=== PATIENT | female | born 1955 | race Caucasian/White ===

== ENCOUNTER 2020-10-29 08:49 | Outpatient (REF) | payer MEDICARE, SELFPAY ==
--- NOTE | ~2020-10-29 | MM_ITS ---
EXAMINATION: MM SCREENING DIGITAL BREAST TOMOSYNTHESIS, BILATERAL CLINICAL INFORMATION: Screening. Asymptomatic. The lifetime risk of breast cancer based on the Tyrer-Cuzick Model is 10%. COMPARISON: Mammography: 07/29/2018, 01/29/2017 TECHNIQUE: Digital breast tomosynthesis is performed in both the craniocaudal and mediolateral oblique views along with computer-aided detection (CAD). Synthesized 2D images are generated from the tomosynthesis. FINDINGS: There are scattered areas of fibroglandular density (ACR BI-RADS breast composition Category b). There are no significant masses, abnormal calcifications, or other abnormalities. Parenchymal pattern is similar to prior studies. No significant changes. MM/MM tomosynthesis screening BI IMPRESSION: No mammographic evidence of malignancy. ASSESSMENT: BI-RADS 1: Negative RECOMMENDATION: Routine annual mammography screening. This patient's information was entered into a reminder system with a target due date for their next mammogram.
--- NOTE | ~2020-10-29 | MM_ITS ---
EXAMINATION: BONE DENSITOMETRY CLINICAL INDICATION: Screening for osteoporosis. COMPARISON: Previous BD dated 03/18/2012 and baseline BD dated 10/10/2009. TECHNIQUE: Using a [employer] DXA System (software version: 13.1) manufactured by [employer], dual-energy x-ray absorptiometry was performed of the lumbar spine and left hip. The images are of good technical quality. Summary results are attached. FINDINGS: AP SPINE L2-L3 (excluding L1 and L4): The data of L1-L4 has been changed to exclude the L1 and L4 vertebral bodies, because probable degenerative changes at these levels may cause overestimation of lumbar spine density. Current: BMD 1.235 g/cm2, Z-score 0.7, T-score 0.3, normal, 3.4% increase from previous, 2.7% increase from baseline (<5% change is not significant). Prior: BMD 1.194 g/cm2. Baseline: BMD 1.203 g/cm2. LEFT FEMUR, NECK: Current: BMD 0.898 g/cm2, Z-score -0.3, T-score -1.0, normal. Prior: BMD 0.878 g/cm2. Baseline: BMD 0.958 g/cm2. LEFT FEMUR, TOTAL: Current: BMD 1.094 g/cm2, Z-score 1.1, T-score 0.7, normal, 14.1% increase from previous, 8.0% increase from baseline (<5% change is not significant). Prior: BMD 0.959 g/cm2. Baseline: BMD 1.013 g/cm2. IDENTIFIED RISK FACTORS: Early menopause, secondary osteoporosis, history of fracture (adult), hysterectomy. HISTORY OF FRACTURE: Extremities. No insufficiency fracture reported. MEDICATIONS: Calcium supplements or multivitamin, vitamin D. MM/XR DEXA axial skeleton IMPRESSION: 1. DIAGNOSIS: Normal bone density based on the lowest T-score value of -1.0 in the femoral neck applying World Health Organization criteria. 2. 10-YEAR FRACTURE RISK PREDICTION, FRAX: Major osteoporotic fracture (clinical spine, forearm, hip or shoulder) 11.9%. Hip fracture 0.8%. 3. Treatment Recommendations: NOF guidelines recommend consideration for treatment in postmenopausal women and men age 50 and older presenting with the following: -A hip or vertebral (clinical or morphometric) fracture. -T-score less than or equal to -2.5 at the femoral neck or spine after appropriate evaluation to exclude secondary causes. -Low bone mass at the hip or spine and a 10-year fracture probability by FRAX of greater than or equal to 3% for hip fracture or greater than or equal to 20% for major osteoporotic fracture based on the [place] adapted WHO algorithm. 4. Other Recommendations: All treatment decisions require clinical judgment and consideration of individual patient factors, including patient preferences, comorbidities, previous drug use, risk factors not captured in the FRAX model (e.g. frailty, falls, vitamin D deficiency, increased bone turnover, interval significant decline in bone density) and possible under or overestimation of fracture risk by FRAX. FUTURE SCAN RECOMMENDATION: People with diagnosed cases of osteoporosis or at high risk for fracture should have regular bone mineral density tests. For patients eligible for Medicare, routine testing is allowed once every 2 years. The testing frequency can be increased to one year for patients who have rapidly progressing disease, those who are receiving or discontinuing medical therapy to restore bone mass, or have additional risk factors.
== END 2020-10-29 08:50 | disposition home or self-care (01) ==
LOC: HO.MAMMO 08:49
PROVIDERS: PCP Internal Medicine; Visit Provider Internal Medicine
DX: Z13.820 Encounter for screening for osteoporosis (principal); Z78.0 Asymptomatic menopausal state; Z79.899 Other long term (current) drug therapy; Z90.710 Acquired absence of both cervix and uterus; Z12.31 Encounter for screening mammogram for malignant neoplasm of breast
CPT/HCPCS: 77063; 77067; 77080

== ENCOUNTER 2020-10-29 08:58 | Outpatient (REF) | payer MEDICARE, SELFPAY | END 2020-10-29 08:59 | disposition home or self-care (01) | LOC: HO.MAMMO 08:58 | PROVIDERS: Visit Provider Internal Medicine | DX: Z13.89 Encounter for screening for other disorder (principal) ==

== ENCOUNTER 2021-11-11 08:23 | Outpatient (REF) | payer MEDICARE, SELFPAY ==
--- NOTE | ~2021-11-11 | MM_ITS ---
EXAMINATION: MM SCREENING DIGITAL BREAST TOMOSYNTHESIS, BILATERAL CLINICAL INFORMATION: Screening. Asymptomatic. The lifetime risk of breast cancer based on the Tyrer-Cuzick Model is 5%. COMPARISON: Mammography: 10/29/2020, 07/29/2018, 01/29/2017 TECHNIQUE: Digital breast tomosynthesis is performed in both the craniocaudal and mediolateral oblique views along with computer-aided detection (CAD). Synthesized 2D images are generated from the tomosynthesis. FINDINGS: There are scattered areas of fibroglandular density (ACR BI-RADS breast composition Category b). There are no significant masses, abnormal calcifications, or other abnormalities. Parenchymal pattern is similar to prior studies. There is no developing density or architectural abnormality. Incidental small stable intramammary node again seen mid upper outer left breast. Low axillary tail nodes are stable. There is a dermal lesion overlying the anterior upper left breast. No significant changes. MM/MM tomosynthesis screening BI IMPRESSION: No mammographic evidence of malignancy. ASSESSMENT: BI-RADS 2: Benign RECOMMENDATION: Routine annual mammography screening. This patient's information was entered into a reminder system with a target due date for their next mammogram.
== END 2021-11-11 08:24 | disposition home or self-care (01) ==
LOC: HO.MAMMO 08:23
PROVIDERS: PCP Internal Medicine; Visit Provider Internal Medicine
DX: Z12.31 Encounter for screening mammogram for malignant neoplasm of breast (principal)
CPT/HCPCS: 77063; 77067

== ENCOUNTER 2022-03-12 12:16 | Outpatient (REF) | payer MEDICARE, SELFPAY ==
--- NOTE | ~2022-03-12 | XR_ITS ---
EXAMINATION: XR ANKLE, RIGHT CLINICAL INFORMATION: Right ankle pain COMPARISON: Radiographs right foot 04/05/2018 TECHNIQUE: AP, lateral, and mortise views of the right ankle. FINDINGS: The malleoli are intact and the ankle mortise is symmetric. There is no ankle joint narrowing or erosive change. No visible ankle capsular effusion. The subtalar joint is unremarkable. The retrocalcaneal recess is preserved. No calcaneal spurring. XR/XR ankle RT 2V IMPRESSION: Unremarkable right ankle.
--- NOTE | ~2022-03-12 | XR_ITS ---
EXAMINATION: XR CHEST CLINICAL INFORMATION: Cough. COMPARISON: 06/07/2015 TECHNIQUE: 2 views of the chest were obtained. FINDINGS: There is again noted to be blunting of the left costophrenic angle and posterior sulcus related to pleural scarring. No definite acute parenchymal disease identified. No pneumothorax or pleural effusion. Heart normal size. No evidence of pulmonary edema. Old left rib fractures evident. There is a 1.5 cm density seen overlying the region of the right hemidiaphragm on PA film and may represent a lung nodule. I do not see this on lateral view. XR/XR chest 2V IMPRESSION: Chronic pleural parenchymal disease left lung base. 1.5 cm circumscribed density seen overlying the right upper abdomen and may represent a lung nodule. CT of chest would be of help in further evaluation of this finding. This does not appear to represent nipple shadow.
== END 2022-03-12 12:17 | disposition home or self-care (01) ==
LOC: HO.XRAY 12:16
PROVIDERS: PCP Internal Medicine; Visit Provider Internal Medicine
DX: R05.9 Cough, unspecified (principal); M25.571 Pain in right ankle and joints of right foot; R09.89 Other specified symptoms and signs involving the circulatory and respiratory systems
CPT/HCPCS: 71046; 73600

== ENCOUNTER 2022-04-09 07:08 | Outpatient (REF) | payer MEDICARE, SELFPAY ==
--- NOTE | ~2022-04-09 | CT_ITS ---
EXAMINATION: CT CHEST WITHOUT CONTRAST CLINICAL INFORMATION: Right lower lobe nodule. Abnormal chest. COMPARISON: Chest x-ray 03/12/2022, CT chest 06/07/2015. TECHNIQUE: Multidetector volumetric CT imaging of the chest was done. Axial MIP volume rendering provided. Sagittal and coronal reformatted images were obtained. This CT examination was performed using dose optimization techniques as appropriate, variously including the following: *Automated exposure control *Adjustment of mA and/or kV according to patient size (this includes techniques or standardized protocols for targeted exams where dose is matched to indication/reason for exam; i.e. extremities or head) *Use of iterative reconstruction technique DLP: 248 mGy-cm FINDINGS: TIRE CORD WEAVER: Unremarkable chest. LUNGS: The lungs are hyperinflated without acute pneumonic process. There is mild thickening of left superior major fissure axial image 278/7. There are atelectatic changes in the lingula on the lateral basal segment left lower lobe and right lung base.. There is a noncalcified 6 mL nodule right middle lobe axial image 380/7, pulmonary nodule right lower lobe adjacent to the right hemidiaphragm image 469/7 and right lower lobe pulmonary nodule at the right CP angle on axial image 520/7. No additional nodules are visualized. MEDIASTINUM: The thyroid lobes are symmetric and normal. The central trachea and the bronchi are widely patent. Accessory right apical bronchus of the trachea as described before. Heart size and the great vessels are normal caliber. No abnormal size mediastinal or hilar lymph nodes seen. No pericardial effusion seen. PLEURA: There is no pleural effusion. No pleural mass or thickening. AXILLA: No lymphadenopathy. UPPER ABDOMEN: Visualized liver, spleen, pancreas and bilateral adrenal glands are unremarkable. OSSEOUS STRUCTURES: No aggressive lytic or sclerotic process seen. Mild degenerative disc changes with spondylosis seen throughout mid and lower dorsal spine. CT/CT chest wo con IMPRESSION: Stable noncalcified pulmonary nodules. No new nodules seen. Fleischner guidelines were followed.
[2022-04-09 07:51] LABS: MANUAL DIFF FLAG NO
[2022-04-09 07:59] LABS: Basophils Percent Auto 0.2 % (0-2); Eosinophils Absolute Auto 0.2 X10*3/uL (0.0-0.4); Eosinophils Percent Auto 4.4 % (0-4); Hematocrit 42.4 % (37.0-47.0); Hemoglobin 13.9 g/dl (12.0-16.0); Imm Gran Abs Auto 0.01 X10*3/uL (0.00-0.03); Imm Gran Pct Auto 0.2 % (0.0-0.4); Lymphocytes Absolute Auto 1.7 X10*3/uL (1.2-4.9); Lymphocytes Percent Auto 37.5 % (20-40); Mean Corpuscular HGB Conc 32.8 g/dl (31.0-35.0); Mean Corpuscular Hemoglobin 29.9 pg (27.0-33.0); Mean Corpuscular Volume 91.2 fL (80.0-98.0); Mean Platelet Volume 10.2 fL (9.4-12.3); Monocytes Absolute Auto 0.4 X10*3/uL (0.1-1.2); Neutrophils Absolute Auto 2.2 x10*3/uL (2.0-8.3); Neutrophils Percent Auto 48.7 % (45-73); Platelet Count 213 X10*3/uL (160-400); Red Blood Count 4.65 X10*6/uL (4.20-5.50); Red Cell Distribution Width 14.6 % (11.0-16.0); White Blood Count 4.6 X10*3/uL (4.8-10.8)
[2022-04-09 08:32] LABS: Alanine Aminotransferase 29 U/L (0-31); Albumin Level 4.3 g/dL (3.5-5.0); Alkaline Phosphatase 58 U/L (39-117); Anion Gap 11 (12-20); Aspartate Amino Transferase 33 U/L (5-31); Bilirubin Total 0.7 mg/dL (0.0-1.0); Blood Urea Nitrogen 16 mg/dL (9-16); Calcium 9.2 mg/dL (8.4-10.2); Carbon Dioxide 28 mmol/L (22-29); Chloride 104 mmol/L (96-108); Cholesterol 204 mg/dL; Estimated Glomerular Filt Rate > 60; Glucose Fasting 98 mg/dL (60-99); HDL Cholesterol 84 mg/dL; LDL Cholesterol Calculated 104 mg/dl; Sodium 139 mmol/L (135-145); Total Protein 6.9 g/dL (6.5-8.0); Triglycerides 84 mg/dL
[2022-04-09 08:52] LABS: Free T4 (Free Thyroxine) 1.15 ng/dL (0.71-1.85)
== END 2022-04-09 07:09 | disposition home or self-care (01) ==
LOC: HO.CT 07:08
PROVIDERS: PCP Internal Medicine; Visit Provider Internal Medicine
DX: I10 Essential (primary) hypertension (principal); E03.9 Hypothyroidism, unspecified; E78.00 Pure hypercholesterolemia, unspecified; R91.1 Solitary pulmonary nodule; R94.39 Abnormal result of other cardiovascular function study
CPT/HCPCS: 36415; 71250; 80053; 80061; 84439; 84443; 85025

== ENCOUNTER 2022-07-10 12:03 | Outpatient (REF) | payer MEDICARE, SELFPAY ==
--- NOTE | ~2022-07-10 | XR_ITS ---
EXAMINATION: XR KNEE, RIGHT CLINICAL INFORMATION: Right knee pain COMPARISON: None TECHNIQUE: Four views of the right knee. FINDINGS: The bones are intact. No fracture. Large joint effusion. Alignment is anatomic. There is narrowing of the moderate to marked narrowing patellofemoral cartilage space with lateral patellar tilt. On the lateral view, there is increased calcific density adjacent to the posterior tibial plateau which raises concern regarding a loose body within the joint. XR/XR knee RT 4V IMPRESSION: 1. Large joint effusion. 2. Moderate to marked narrowing of the patellofemoral cartilage space with lateral patellar tilt. 3. Question of loose body within the knee joint.
== END 2022-07-10 12:04 | disposition home or self-care (01) ==
LOC: HO.XRAY 12:03
PROVIDERS: PCP Internal Medicine; Visit Provider Internal Medicine
DX: M25.561 Pain in right knee (principal)
CPT/HCPCS: 73564

== ENCOUNTER 2022-11-17 07:41 | Outpatient (REF) | payer MEDICARE, SELFPAY ==
--- NOTE | ~2022-11-17 | MM_ITS ---
EXAMINATION: MM SCREENING DIGITAL BREAST TOMOSYNTHESIS, BILATERAL CLINICAL INFORMATION: Screening. Asymptomatic. The lifetime risk of breast cancer based on the Tyrer-Cuzick Model is 9%. COMPARISON: Mammography: 11/11/2021, 10/29/2020, 07/29/2018 TECHNIQUE: Digital breast tomosynthesis is performed in both the craniocaudal and mediolateral oblique views along with computer-aided detection (CAD). Synthesized 2D images are generated from the tomosynthesis. FINDINGS: There are scattered areas of fibroglandular density (ACR BI-RADS breast composition Category b). There are no significant masses, abnormal calcifications, or other abnormalities. No architectural abnormality or developing density or significant change from prior studies. The axilla are unremarkable. Again, there is a small intramammary node mid upper outer left breast and a dermal lesion overlying the anterior upper left breast. MM/MM tomosynthesis screening BI IMPRESSION: No mammographic evidence of malignancy. ASSESSMENT: BI-RADS 2: Benign RECOMMENDATION: Routine annual mammography screening. This patient's information was entered into a reminder system with a target due date for their next mammogram.
== END 2022-11-17 07:42 | disposition home or self-care (01) ==
LOC: HO.MAMMO 07:41
PROVIDERS: PCP Internal Medicine; Visit Provider Internal Medicine
DX: Z12.31 Encounter for screening mammogram for malignant neoplasm of breast (principal)
CPT/HCPCS: 77063; 77067

== ENCOUNTER 2023-11-04 11:26 | Outpatient (REF) | payer MEDICARE, SELFPAY ==
[2023-11-04 13:08] LABS: MANUAL DIFF FLAG NO
[2023-11-04 13:19] LABS: Hematocrit 34.7 % (37.0-47.0); Imm Gran Pct Auto 0.2 % (0.0-0.4); Mean Corpuscular HGB Conc 28.8 g/dl (31.0-35.0); Mean Corpuscular Hemoglobin 21.8 pg (27.0-33.0); Mean Corpuscular Volume 75.8 fL (80.0-98.0); Mean Platelet Volume 10.6 fL (9.4-12.3); Platelet Count 356 X10*3/uL (160-400); Red Blood Count 4.58 X10*6/uL (4.20-5.50); Red Cell Distribution Width 17.4 % (11.0-16.0); White Blood Count 5.6 X10*3/uL (4.8-10.8)
[2023-11-04 13:20] LABS: Basophils Percent Auto 0.4 % (0-2); Eosinophils Absolute Auto 0.3 X10*3/uL (0.0-0.4); Eosinophils Percent Auto 5.7 % (0-4); Imm Gran Abs Auto 0.01 X10*3/uL (0.00-0.03); Lymphocytes Absolute Auto 1.5 X10*3/uL (1.2-4.9); Lymphocytes Percent Auto 26.2 % (20-40); Monocytes Absolute Auto 0.5 X10*3/uL (0.1-1.2); Monocytes Percent Auto 9.5 % (2-11); Neutrophils Absolute Auto 3.2 x10*3/uL (2.0-8.3)
[2023-11-04 13:37] LABS: Appearance Urine Clear; Color Urine Yellow; Glucose Urine UA Negative (Negative); Leukocyte Esterase Urine Small (1+) (Negative); Nitrite Urine Negative (Negative); PH 5.5 (5.0-9.0); UMIC TRIGGER UACC YES; Urine Blood Negative (Negative); Urine Ketones Negative (Negative); Urine Protein Negative (Neg-Trace)
[2023-11-04 13:50] LABS: Alanine Aminotransferase 16 U/L (0-31); Alkaline Phosphatase 102 U/L (39-117); Anion Gap 14 (12-20); Aspartate Amino Transferase 25 U/L (5-31); Bilirubin Total 0.4 mg/dL (0.0-1.0); Blood Urea Nitrogen 8 mg/dL (9-16); Calcium 9.7 mg/dL (8.4-10.2); Carbon Dioxide 29 mmol/L (22-29); Chloride 102 mmol/L (96-108); Cholesterol 173 mg/dL (<200); Estimated Glomerular Filt Rate > 60; Glucose Fasting 94 mg/dL (60-99); HDL Cholesterol 68 mg/dL (>40); LDL Cholesterol Calculated 83 mg/dL (<100); Sodium 141 mmol/L (135-145); Total Protein 7.6 g/dL (6.5-8.0); Triglycerides 110 mg/dL (<150)
[2023-11-04 13:58] LABS: Bacteria Urine None Seen (None Seen); Hyaline Casts Urine 0-2 /LPF (0-2); RBC Urine 0-2 /HPF (0-2); UACC Culture Trigger YES; WBC Urine 21-50 /HPF (0-5)
[2023-11-04 14:08] LABS: Free T4 (Free Thyroxine) 1.07 ng/dL (0.71-1.85); Thyroid Stimulating Hormone 2.49 uIU/mL (0.32-4.0)
== END 2023-11-04 11:27 | disposition home or self-care (01) ==
LOC: HO.10HDL 11:26
PROVIDERS: Visit Provider Internal Medicine
DX: I10 Essential (primary) hypertension (principal); E03.9 Hypothyroidism, unspecified; K21.9 Gastro-esophageal reflux disease without esophagitis; J44.9 Chronic obstructive pulmonary disease, unspecified; D64.9 Anemia, unspecified
CPT/HCPCS: 36415; 80053; 80061; 81001; 84439; 84443; 85025; 87086

== ENCOUNTER 2023-11-09 07:39 | Outpatient (REF) | payer MEDICARE, SELFPAY ==
[2023-11-09 10:34] LABS: Retic HGB Equivalent 22.1 pg (30.0-35.0); Reticulocyte Percent 2.2 % (0.5-1.8); Reticulocytes Absolute 0.105 X10*6/uL (0.026-0.095)
[2023-11-09 10:36] LABS: Urine Cytology See Pathology rpt
[2023-11-09 11:21] LABS: Iron 27 mcg/dL (30-160); Percent Iron Saturation 6 % (15-50); Total Iron Binding Capacity 420 mcg/dL (228-428); Unsaturated Iron Binding 393 ug/dL
[2023-11-10 14:40] LABS: Vitamin B12 435 pg/mL (200-900)
== END 2023-11-09 07:40 | disposition home or self-care (01) ==
LOC: HO.10HDL 07:39
PROVIDERS: Visit Provider Internal Medicine
DX: D64.9 Anemia, unspecified (principal); R30.0 Dysuria
CPT/HCPCS: 36415; 82607; 83540; 85045; 88112

== ENCOUNTER 2023-11-23 07:51 | Outpatient (REF) | payer MEDICARE, SELFPAY ==
--- NOTE | ~2023-11-23 | MM_ITS ---
EXAMINATION: MM SCREENING DIGITAL BREAST TOMOSYNTHESIS, BILATERAL CLINICAL INFORMATION: Screening. Asymptomatic. COMPARISON: Mammography: 11/17/2022, 10/29/2020, 07/29/2018, 01/29/2017 TECHNIQUE: Digital breast tomosynthesis is performed in both the craniocaudal and mediolateral oblique views along with computer-aided detection (CAD). Synthesized 2D images are generated from the tomosynthesis. FINDINGS: There are scattered areas of fibroglandular density (ACR BI-RADS breast composition Category b). Incidental small stable intramammary node again seen mid upper outer left breast. Low axillary tail nodes are stable. There are no suspicious masses, suspicious grouped calcifications, or areas of architectural distortion in either breast. The parenchymal pattern is stable from prior exams. MM/MM tomosynthesis screening BI IMPRESSION: No mammographic evidence of malignancy. ASSESSMENT: BI-RADS BI-RADS 2 - Benign Findings RECOMMENDATION: Routine annual mammography screening. 1 year F/U This examination should not preclude the clinical evaluation of a suspicious palpable abnormality. This patient's information was entered into a reminder system with a target due date for their next mammogram.
== END 2023-11-23 07:52 | disposition home or self-care (01) ==
LOC: HO.MAMMO 07:51
PROVIDERS: PCP Internal Medicine; Visit Provider Internal Medicine
DX: Z12.31 Encounter for screening mammogram for malignant neoplasm of breast (principal)
CPT/HCPCS: 77063; 77067

== ENCOUNTER → 2023-11-23 08:00 | Outpatient (BNV) | payer MEDICARE, SELFPAY | PROVIDERS: PCP Internal Medicine; Visit Provider Radiology Diagnostic Radiology | DX: Z12.31 Encounter for screening mammogram for malignant neoplasm of breast (principal) | CPT/HCPCS: 77063; 77067 ==

== ENCOUNTER 2023-12-09 14:25 | Outpatient (REF) | payer MEDICARE, SELFPAY ==
--- NOTE | ~2023-12-09 | XR_ITS ---
EXAMINATION: XR CHEST CLINICAL INFORMATION: Evaluate for pneumonia COMPARISON: 02/13/2022 TECHNIQUE: 2 views of the chest were obtained. FINDINGS: Heart, mediastinum and vascularity within normal limits. Chronic left costophrenic angle blunting again noted. Interval opacity right medial base. Bony structures are intact. XR/XR chest 2V IMPRESSION: Radiographic findings suspicious for right middle lobe pneumonia. Follow-up to complete resolution recommended.
== END 2023-12-09 14:26 | disposition home or self-care (01) ==
LOC: HO.XRAY 14:25
PROVIDERS: PCP Internal Medicine; Visit Provider Internal Medicine
DX: Z13.89 Encounter for screening for other disorder (principal)
CPT/HCPCS: 71046

== ENCOUNTER 2023-12-09 15:17 | Outpatient (REF) | payer MEDICARE, SELFPAY ==
[2023-12-09 16:43] LABS: Influenza A PCR NEGATIVE (Negative); Influenza B PCR NEGATIVE (Negative); Resp Syncy Virus RNA Qual PCR NEGATIVE (Negative); SARS COV2 PCR INHOUSE NEGATIVE (Negative)
== END 2023-12-09 15:18 | disposition home or self-care (01) ==
LOC: HO.LNP 15:17
PROVIDERS: Visit Provider Internal Medicine
DX: Z11.52 Encounter for screening for COVID-19 (principal); Z20.822 Contact with and (suspected) exposure to COVID-19; R05.9 Cough, unspecified; R06.2 Wheezing
CPT/HCPCS: 0241U; 71046

== ENCOUNTER 2023-12-29 07:30 | Outpatient (REF) | payer MEDICARE, SELFPAY | END 2023-12-29 07:31 | disposition home or self-care (01) | LOC: HO.CT 07:30 | PROVIDERS: PCP Internal Medicine; Visit Provider Internal Medicine | DX: Z13.89 Encounter for screening for other disorder (principal) ==

== ENCOUNTER 2024-01-18 13:09 | Outpatient (REF) | payer MEDICARE, SELFPAY ==
--- NOTE | ~2024-01-18 | CT_ITS ---
EXAMINATION: CT CHEST WITHOUT CONTRAST CLINICAL INFORMATION: Right middle lobe pneumonia. COMPARISON: Chest x-ray December 01, 2023. CT chest April 09, 2022. CT chest June 07, 2015. TECHNIQUE: Multidetector volumetric CT imaging of the chest was done. Axial MIP volume rendering provided. Sagittal and coronal reformatted images were obtained. This CT examination was performed using dose optimization techniques as appropriate, variously including the following: *Automated exposure control *Adjustment of mA and/or kV according to patient size (this includes techniques or standardized protocols for targeted exams where dose is matched to indication/reason for exam; i.e. extremities or head) *Use of iterative reconstruction technique DLP: 302 mGy-cm FINDINGS: LUNGS: No acute airspace disease. No bronchiectasis. No interstitial lung changes. Stable linear scarring at the lingula anterior left lower lobe at the costophrenic angle. Lung nodules: Right lun. Stable 3 x 5 mm nodule right middle lobe axial image 374/589 is 5. This is stable since CAT scan June 07, 2015. No further follow-up imaging recommended. No new lung nodules. MEDIASTINUM: The heart size is normal. No pericardial effusion. Aorta and great vessels are unremarkable. No mass or significant lymphadenopathy. CORONARY ARTERY CALCIFICATION: None visualized on this study. PLEURA: There is no pleural effusion. No pleural mass or thickening. AXILLA: No lymphadenopathy. UPPER ABDOMEN: Unremarkable. OSSEOUS STRUCTURES: Multilevel degenerative spondylosis spine. CT/CT chest wo IV con IMPRESSION: No acute abnormality of the chest. Fleischner guidelines were followed.
[2024-01-18 14:03] LABS: MANUAL DIFF FLAG NO
[2024-01-18 15:44] LABS: Basophils Percent Auto 0.3 % (0-2); Eosinophils Absolute Auto 0.3 X10*3/uL (0.0-0.4); Eosinophils Percent Auto 4.4 % (0-4); Hematocrit 39.9 % (37.0-47.0); Imm Gran Abs Auto 0.01 X10*3/uL (0.00-0.03); Imm Gran Pct Auto 0.2 % (0.0-0.4); Lymphocytes Absolute Auto 1.5 X10*3/uL (1.2-4.9); Lymphocytes Percent Auto 25.9 % (20-40); Mean Corpuscular HGB Conc 30.1 g/dl (31.0-35.0); Mean Corpuscular Hemoglobin 24.2 pg (27.0-33.0); Mean Corpuscular Volume 80.4 fL (80.0-98.0); Mean Platelet Volume 11.3 fL (9.4-12.3); Monocytes Absolute Auto 0.6 X10*3/uL (0.1-1.2); Monocytes Percent Auto 10.2 % (2-11); Neutrophils Absolute Auto 3.5 x10*3/uL (2.0-8.3); Platelet Count 309 X10*3/uL (160-400); Red Blood Count 4.96 X10*6/uL (4.20-5.50); Red Cell Distribution Width 22.1 % (11.0-16.0); White Blood Count 5.9 X10*3/uL (4.8-10.8)
[2024-01-18 16:38] LABS: Iron 37 mcg/dL (30-160); Percent Iron Saturation 9 % (15-50); Total Iron Binding Capacity 404 mcg/dL (228-428); Unsaturated Iron Binding 367 ug/dL
== END 2024-01-18 13:10 | disposition home or self-care (01) ==
LOC: HO.CT 13:09
PROVIDERS: PCP Internal Medicine; Visit Provider Internal Medicine
DX: J18.9 Pneumonia, unspecified organism (principal)
CPT/HCPCS: 36415; 71250; 83540; 85025

== ENCOUNTER 2025-01-30 09:54 | Outpatient (AMB) | payer MEDICARE, SELFPAY ==
--- NOTE | 2025-01-30 09:57 | A.OFFPC_ITS ---
Vital Signs 01/30/25 10:04 Height 5 ft 6 in Weight 123.377 kg BMI 43.9 BP 128/86 Respiration 18 Pulse 86 Pulse Source Pulse Oximeter Temp 96.8 F Temp Source Temporal Artery Scan Pulse Oximetry (%) 97 Oxygen Delivery Method Room Air Intake Visit Reasons: Trouble Breathing - see comments Drywall Boardhanger Required: No Accompanied by: Self / Same As Patient Allergies No Known Allergies Allergy (Verified 01/30/25 10:03) HPI HPI Comments History of Present Illness Details 69 year old female iwth htn, hypothyroid ism, hld, maria r who is morbidly obese with BMI >43.9 presents to the office for management of chronic conditions and to establish care. Reports chronic sinusitis which she feels is well managed at this time. She reports she has gained 100 pounds since her R TKA and now needs a L TKA. Reports she has been sedentary as a result but has been following a healthy diet. Despite this has not been able to lose weight though she does desire to do so. She is wondering if GLP 1 could be prescribed given the morbid obesity as well as her obstructive sleep apnea. She does not use his CPAP as she was unable to tolerate this. Follows with [facility]. She is aware of the pot ential effects of not using a CPAP. She does however state that she is not sleeping. She is compliant with all of her medications [facility] Medical History (Updated 01/30/25 @ 10:21 by BRUNA Urias) Former cigarette smoker Asthma Hyperlipidemia Hypothyroidism HTN (hypertension) Morbid obesity Obstructive sleep apnea Social History (Updated 01/30/25 @ 10:20 by BRUNA Urias) Patient Tobacco Use Status: Former Tobacco user Cigarette Packs Per Day: 1 Years Smoked: 20 years, quit 20 years ago Review of Systems Const All systems reviewed & are unremarkable except as noted in HPI and below Physical exam (Primary Care) Vital Signs: Last Vital Signs Temp 96.8 F 01/30/25 10:04 Pulse 86 01/30/25 10:04 Resp 18 01/30/25 10:04 BP 128/86 01/30/25 10:04 Pulse Ox 97 01/30/25 10:04 Oxygen Delivery Method Room Air 01/30/25 10:04 BMI result Body Mass Index 43.9 Tobacco/Smoking Status: Tobacco use Status Patient Tobacco Use Status Former Tobacco user 01/30/25 10:20 Const Other: Constitutional - Awake and Alert, No apparent distress Eyes - PERRLA, EOMI Cardiovascular - S1S2, RRR, No edema Respiratory - Normal lung expansion, Normal respiratory effort, No respiratory distress, CTA bilaterally Extremities - no calf tenderness bilaterally, no swelling Skin - Warm/Dry Neurological - Alert & oriented x3 Psychological - Appropriate affect Coding Level of Care Code New Pt Level 4 (99704) Complex EM visit Add On G2211 Diagnoses HTN (hypertension) I10 Hypothyroidism E03.9 Hyperlipidemia E78.5 Obstructive sleep apnea G47.33 Morbid obesity E66.01 Asthma J45.909 Assessment & Plan Assessment & Plan (1) HTN (hypertension): Code(s): I10 - Essential (primary) hypertension Category: Medical Plan: Controlled with blood pressure 128/86. She will continue losartan 50 mg daily. BMP ordered to evaluate renal function and electrolyte levels. (2) Hypothyroidism: Code(s): E03.9 - Hypothyroidism, unspecified Category: Medical Plan: TSH with reflex free T4 ordered. Continue levothyroxine as prescribed, dose to be adjusted pending results of study. (3) Hyperlipidemia: Code(s): E78.5 - Hyperlipidemia, unspecified Category: Medical Plan: Lipid panel ordered. Continue atorvastatin 20 mg daily, dose to be adjusted as appropriate pending results of study. Recommend diet low in saturated fat as well as highly processed oils. (4) Obstructive sleep apnea: Code(s): G47.33 - Obstructive sleep apnea (adult) (pediatric) Category: Medical Plan: Not currently using CPAP. Referred for sleep study. Counseled on the possible effects of CPAP noncompliance (5) Morbid obesity: Code(s): E66.01 - Morbid (severe) obesity due to excess calories Category: Medical Plan: Significant weight gain over the last 1.5 years. Limited access to exercise secondary to severe knee pain. She will follow-up with orthopedics for possible left TKA. Recommend healthy diet with increased protein, vegetables, fruits. Recommend lowering carbohydrate intake as well as saturated fats. Tirzepatide ordered (6) Asthma: Code(s): J45.909 - Unspecified asthma, uncomplicated Category: Medical Plan: Question if her chronic lung disease is actually COPD given the chronic cough and smoking history. She is referred for pulmonary function testing. Plan Follow up in 6 months, sooner if needed. Labs to be completes prior to visit. Referred for PFT and sleep study Orders: Orders RT home sleep study 01/30/25 E03.9 - Hypothyroidism, unspecified, E66.01 - Morbid (severe) obesity due to excess calories, E78.5 - Hyperlipidemia, unspecified, G47.33 - Obstructive sleep apnea (adult) (pediatric), I10 - Essential (primary) hypertension, Z13.1 - Encounter for screening for diabetes mellitus Basic Metabolic Panel 01/30/25 E03.9 - Hypothyroidism, unspecified, E66.01 - Morbid (severe) obesity due to excess calories, E78.5 - Hyperlipidemia, unspecified, G47.33 - Obstructive sleep apnea (adult) (pediatric), I10 - Essential (primary) hypertension, Z13.1 - Encounter for screening for diabetes mellitus Hemoglobin A1c 01/30/25 E03.9 - Hypothyroidism, unspecified, E66.01 - Morbid (severe) obesity due to excess calories, E78.5 - Hyperlipidemia, unspecified, G47.33 - Obstructive sleep apnea (adult) (pediatric), I10 - Essential (primary) hypertension, Z13.1 - Encounter for screening for diabetes mellitus Lipid Panel 01/30/25 E03.9 - Hypothyroidism, unspecified, E66.01 - Morbid (severe) obesity due to excess calories, E78.5 - Hyperlipidemia, unspecified, G47.33 - Obstructive sleep apnea (adult) (pediatric), I10 - Essential (primary) hypertension, Z13.1 - Encounter for screening for diabetes mellitus Liver Panel 01/30/25 E03.9 - Hypothyroidism, unspecified, E66.01 - Morbid (severe) obesity due to excess calories, E78.5 - Hyperlipidemia, unspecified, G47.33 - Obstructive sleep apnea (adult) (pediatric), I10 - Essential (primary) hypertension, Z13.1 - Encounter for screening for diabetes mellitus Complete Blood Count Auto Diff 01/30/25 E03.9 - Hypothyroidism, unspecified, E66.01 - Morbid (severe) obesity due to excess calories, E78.5 - Hyperlipidemia, unspecified, G47.33 - Obstructive sleep apnea (adult) (pediatric), I10 - Essential (primary) hypertension, Z13.1 - Encounter for screening for diabetes mellitus TSH reflex Free T4 01/30/25 E03.9 - Hypothyroidism, unspecified, E66.01 - Morbid (severe) obesity due to excess calories, E78.5 - Hyperlipidemia, unspecified, G47.33 - Obstructive sleep apnea (adult) (pediatric), I10 - Essential (primary) hypertension, Z13.1 - Encounter for screening for diabetes mellitus PFT pulmonary function test 01/30/25 J45.909 - Unspecified asthma, uncomplicated, R05.3 - Chronic cough, Z87.891 - Personal history of nicotine dependence Medications: New tirzepatide for 4 weeks 2.5 mg (0.5 mL) subcut QWEEK 2 mL 0RF E66.01 - Morbid (severe) obesity due to excess calories, G47.33 - Obstructive sleep apnea (adult) (pediatric) Discontinued amoxicillin Take 4 capsule(s) 1 hour before dental work Discontinued Reason: Patient Completed Course 2,000 mg (4 x 500 mg) PO ONCE 4 caps 0RF
[2025-01-30 10:04] VITALS: BP 128/86; PULSE 86; RESP 18; TEMP 36; O2SAT 97; BMI 43.9
--- OUTSIDE RECORDS SUMMARY | 2025-01-30 10:58 | XMS_ITS | Patient Health Record ---
Author Organization [facility] Address [address] [place] [address] Care Team Providers Care Lathe Turner Name Role Phone Brayden Yee MD Primary Care Provider Omid Rhoades Unavailable [phone] Allergies No Known Allergies Reason For Referral No Information Medications Medication SIG (Take, Route, Frequency, Duration) Notes Start Date End Date Status Atorvastatin Calcium 20 MG 1 tablet Oral ly Once a day for 30 day(s) Active Losartan Potassium 50 MG 1 tablet Orally Once a day for 30 day(s) Active Levothyroxine Sodium 150 MCG 1 tablet in the morning on an empty stomach Orally Once a day for 30 day(s) Active Social History Tobacco Use: Social History Observation Description Date Details (start date - stop date) Former Smoker NA - NA Tobacco Use/Smoking Question Answer Notes Are you a: former smoker Alcohol Screen Question Answer Notes Did you have a drink contain ing alcohol in the past year? Yes How often did you have a dri nk containing alcohol in the past year? Monthly or less (1 point) Points 1 Interpretation Negative Tobacco use other than smoking: Question Answer Notes Are you an other tobacco user? No Plan Of Treatment No Information Insurance Providers Payer Name Payer Address Payer Phone Subscriber Number Group Number Insured Name Patient Relationship to Insured Coverage Start Date Coverage End Date [employer] [address] [place] [address] [id number] Mirian Giang Self - patient is the insured Medical (General) History Medical History History ICD Code Anemia Anxiety asthma Broken bones Dementia Diverticulosis High blood pressure chronic sinusitis thyroid Measles Mumps Chicken pox Transfusions CAD Surgical History Surgery Date(Month/Year)
== END 2025-01-30 10:28 | disposition home or self-care (01) ==
LOC: HO.HMCHD 09:55
PROVIDERS: PCP Internal Medicine; Visit Provider Physician Assistant
DX: I10 Essential (primary) hypertension (principal); E03.9 Hypothyroidism, unspecified; E78.5 Hyperlipidemia, unspecified; G47.33 Obstructive sleep apnea (adult) (pediatric); E66.01 Morbid (severe) obesity due to excess calories; J45.909 Unspecified asthma, uncomplicated

== ENCOUNTER 2025-01-30 10:33 | Outpatient (REF) | payer MEDICARE, SELFPAY ==
[2025-01-30 14:04] LABS: MANUAL DIFF FLAG NO
[2025-01-30 14:16] LABS: Basophils Percent Auto 0.2 % (0-2); Eosinophils Absolute Auto 0.2 X10*3/uL (0.0-0.4); Eosinophils Percent Auto 2.8 % (0-4); Hematocrit 46.3 % (37.0-47.0); Hemoglobin 15.1 g/dl (12.0-16.0); Imm Gran Abs Auto 0.04 X10*3/uL (0.00-0.03); Imm Gran Pct Auto 0.7 % (0.0-0.4); Lymphocytes Absolute Auto 1.3 X10*3/uL (1.2-4.9); Lymphocytes Percent Auto 22.7 % (20-40); Mean Corpuscular HGB Conc 32.6 g/dl (31.0-35.0); Mean Corpuscular Hemoglobin 29.4 pg (27.0-33.0); Mean Corpuscular Volume 90.3 fL (80.0-98.0); Mean Platelet Volume 11.6 fL (9.4-12.3); Monocytes Absolute Auto 0.4 X10*3/uL (0.1-1.2); Monocytes Percent Auto 7.7 % (2-11); Neutrophils Absolute Auto 3.7 x10*3/uL (2.0-8.3); Neutrophils Percent Auto 65.9 % (45-73); Platelet Count 238 X10*3/uL (160-400); Red Blood Count 5.13 X10*6/uL (4.20-5.50); Red Cell Distribution Width 13.8 % (11.0-16.0); White Blood Count 5.7 X10*3/uL (4.8-10.8)
[2025-01-30 14:38] LABS: Estimated Average Glucose 117 mg/dL; Hemoglobin A1C 154.7038 umol/L; Hemoglobin A1c % 5.7 % (<6.0); Total Hemoglobin (HGBA1C) 3996.9225 umol/L
[2025-01-30 14:59] LABS: Alanine Aminotransferase 25 U/L (0-31); Albumin Level 4.3 g/dL (3.5-5.0); Alkaline Phosphatase 92 U/L (39-117); Anion Gap 10 (12-20); Aspartate Amino Transferase 26 U/L (5-31); Bilirubin Direct 0.2 mg/dL (0.0-0.5); Bilirubin Total 0.4 mg/dL (0.0-1.0); Blood Urea Nitrogen 12 mg/dL (9-16); Calcium 9.4 mg/dL (8.4-10.2); Carbon Dioxide 31 mmol/L (22-29); Chloride 101 mmol/L (96-108); Cholesterol 179 mg/dL (<200); Estimated Glomerular Filt Rate > 60; Glucose Random 104 mg/dL (60-115); HDL Cholesterol 59 mg/dL (>40); LDL Cholesterol Calculated 102 mg/dL (<100); Potassium 4.2 mmol/L (3.3-5.1); Sodium 138 mmol/L (135-145); TSH reflex Free T4 4.28 uIU/mL (0.32-4.0); Total Protein 7.5 g/dL (6.5-8.0); Triglycerides 90 mg/dL (<150)
[2025-01-30 16:27] LABS: Free T4 (Free Thyroxine) 1.17 ng/dL (0.71-1.85)
== END 2025-01-30 10:34 | disposition home or self-care (01) ==
LOC: HO.10HDL 10:33
PROVIDERS: Visit Provider Physician Assistant
DX: I10 Essential (primary) hypertension (principal); E03.9 Hypothyroidism, unspecified; E78.5 Hyperlipidemia, unspecified; G47.33 Obstructive sleep apnea (adult) (pediatric); E66.01 Morbid (severe) obesity due to excess calories; Z68.41 Body mass index [BMI] 40.0-44.9, adult; J45.909 Unspecified asthma, uncomplicated; Z79.899 Other long term (current) drug therapy; Z13.1 Encounter for screening for diabetes mellitus
CPT/HCPCS: 36415; 80048; 80061; 80076; 83036; 84439; 84443; 85025; 99202

== ENCOUNTER 2025-03-06 08:51 | Outpatient (AMB) | payer MEDICARE, SELFPAY ==
--- NOTE | 2025-03-06 08:53 | MHC.PC.OV ---
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 He was recently started on tirzepatide 2.5 mg weekly and reports feeling well on this. No adverse side effects. She states this has really curbed her appetite and helped her psychologically with cravings. In addition to using the medication, she has downloaded an application on her phone to track her calorie intake as well as macros. She is currently maintain a calorie deficit and is taking in 1270 calories per day with emphasis on protein, 130 g per day. She has lost 13 lb since initiating the medication thus far and is feeling very good about this and is motivated to continue with weight loss. She does still continue to use her CPAP and has upcoming repeat sleep study on April 05. Despite her weight loss efforts, she does continue to experience chronic pain. She has chronic pain in the left hip that occasionally radiates into the left thigh. She also has chronic pain of the knees bilaterally and is following with Orthopedics for cortisone injections. As a result, she is having difficulty at work due to prolonged standing. She is looking for accommodations and reduced work schedule as a result. In the meantime, she will continuing working with Orthopedic surgery as well as working on weight loss efforts which showed ultimately improve pain by decreasing the amount of stress on the joints. Labs were completed following last visit which showed minimally elevated LDL at 102 and stable thyroid function with free T4 1.17. Hemoglobin A1c was 5.7%. Renal function within normal limits, electrolyte levels within normal limits except for a slightly elevated CO2 of 31. Continues to report compliance with all medications. Blood pressure in the office today 120/74. Concerns: None other than those mentioned above ROS: General: No fevers, malaise, unintentional weight loss HEENT: No blurred vision, diplopia. No sore throat, nasal congestion, rhinorrhea, sinus pain, ear pain Cardiovascular: No chest pain, palpitations, or leg edema Respiratory: No shortness of breath, wheezing, cough MSK: No myalgia, back pain. see hpi Neuro: No headaches, weakness, paresthesias Skin: No rashes or lesions EXAM: Constitutional - Awake and Alert, No apparent distress Eyes - PERRL Cardiovascular - S1S2, RRR, No edema Respiratory - Normal lung expansion, Normal respiratory effort, No respiratory distress, CTA bilaterally Extremities - no calf tenderness bilaterally, no swelling Skin - Warm/Dry Neurological - Alert & oriented x3 Psychological - Appropriate affect ON LICENSE OF [facility] Medical History (Updated 03/06/25 @ 09:37 by BRUNA Urias) Osteoarthritis of hips, bilateral Osteoarthritis of knees, bilateral Former cigarette smoker Asthma Hyperlipidemia Hypothyroidism HTN (hypertension) Morbid obesity Obstructive sleep apnea Social History (Updated 01/30/25 @ 10:20 by BRUNA Urias) Patient Tobacco Use Status: Former Tobacco user Cigarette Packs Per Day: 1 Years Smoked: 20 years, quit 20 years ago Packs Per Year: 0 Physical exam (Primary Care) Vital Signs: Last Vital Signs Temp 97.5 F 03/06/25 09:01 Pulse 80 03/06/25 09:01 Resp 18 03/06/25 09:01 BP 120/74 03/06/25 09:01 Pulse Ox 99 03/06/25 09:01 Oxygen Delivery Method Room Air 03/06/25 09:01 BMI result Body Mass Index 41.6 Tobacco/Smoking Status: Tobacco use Status Patient Tobacco Use Status Former Tobacco user 03/06/25 08:57 Coding Level of Care Code Est Pt Level 4 (09556) Diagnoses Morbid obesity E66.01 HTN (hypertension) I10 Hyperlipidemia E78.5 Osteoarthritis of knees, bilateral M17.0 Osteoarthritis of hips, bilateral M16.0 Obstructive sleep apnea G47.33 Assessment & Plan Assessment & Plan (1) Morbid obesity: Code(s): E66.01 - Morbid (severe) obesity due to excess calories Category: Medical Plan: Commended on weight loss/weight loss efforts thus far. She will continue on tirzepatide, dose increased to 5 mg weekly. Continue with healthy diet, tracking macros and calorie deficit. Recommend regular exercise as tolerated. Given history of moderate ASHLYN, will re-attempt insurance authorization following completion of upcoming sleep study. (2) HTN (hypertension): Code(s): I10 - Essential (primary) hypertension Category: Medical Plan: Controlled. Continue losartan 50 mg daily. Low-sodium diet (3) Hyperlipidemia: Code(s): E78.5 - Hyperlipidemia, unspecified Category: Medical Plan: Reviewed lipid panel. Overall, cholesterol levels are well-controlled, LDL only minimally elevated at 102. Continue atorvastatin 20 mg daily as well as weight loss efforts. (4) Osteoarthritis of knees, bilateral: Code(s): M17.0 - Bilateral primary osteoarthritis of knee Category: Medical Plan: Continue following with Orthopedic surgery. FMLA/P FML paperwork to be completed as well as accommodation letter. (5) Osteoarthritis of hips, bilateral: Code(s): M16.0 - Bilateral primary osteoarthritis of hip Category: Medical Plan: Continue following with Orthopedic surgery. FMLA/P FML paperwork to be completed as well as accommodation letter. (6) Obstructive sleep apnea: Code(s): G47.33 - Obstructive sleep apnea (adult) (pediatric) Category: Medical Plan: Continue use of CPAP. Complete upcoming sleep study. Plan Follow-up in the office in 3 months. Continue weight loss efforts.
[2025-03-06 09:01] VITALS: BP 120/74; PULSE 80; RESP 18; TEMP 36.4; O2SAT 99; BMI 41.6
--- OUTSIDE RECORDS SUMMARY | 2025-03-06 09:15 | XMS_ITS | Patient Health Record ---
[facility] Organization [facility] [place] Address [address] [place] [address] Care Team Providers Care Industrial Hygenist Name Role Phone Brayden Yee MD Primary Care Provider Omid Rhoades Unavailable [phone] Allergies No Known Allergies Reason For Referral [...] Coverage End Date [employer] [address] [place] [address] [id number] Mirian Giang Self - patient is the insured Medical (General) History Medical History History ICD Code Anemia Anxiety asthma Broken bones Dementia Diverticulosis High blood pressure chronic sinusitis thyroid Measles Mumps Chicken pox Transfusions CAD Surgical History Surgery Date(Month/Year)
== END 2025-03-06 09:28 | disposition home or self-care (01) ==
LOC: HO.HMCHD 08:51
PROVIDERS: PCP Internal Medicine; Visit Provider Physician Assistant
DX: E66.01 Morbid (severe) obesity due to excess calories (principal); I10 Essential (primary) hypertension; E78.5 Hyperlipidemia, unspecified; M17.0 Bilateral primary osteoarthritis of knee; M16.0 Bilateral primary osteoarthritis of hip; G47.33 Obstructive sleep apnea (adult) (pediatric)

== ENCOUNTER → 2025-03-06 08:51 | Outpatient (BNVA) | payer MEDICARE, SELFPAY | PROVIDERS: PCP Internal Medicine; Visit Provider Physician Assistant | DX: E66.01 Morbid (severe) obesity due to excess calories (principal); I10 Essential (primary) hypertension; M17.0 Bilateral primary osteoarthritis of knee; E78.5 Hyperlipidemia, unspecified; M16.0 Bilateral primary osteoarthritis of hip; G47.33 Obstructive sleep apnea (adult) (pediatric) | CPT/HCPCS: 99212 ==